=== PATIENT | female | born 1995 | race Two or more races ===

== ENCOUNTER 2023-10-18 08:42 | Emergency (ER) | payer OTHER ==
[~2023-10-18] VITALS: Ht 162.6 cm; Wt 63.5 kg
[~2023-10-18 08:42] MED LIST: TUSNEL LIQUID178 ML PO; ZITHROMAX500 MG PO
== END 2023-10-18 13:55 | disposition home or self-care (01) ==
LOC: ER 08:42
DX: R51.9 Headache, unspecified (principal); Z88.8 Allergy status to other drugs, medicaments and biological substances